=== PATIENT | male | born 1960 | race Caucasian/White ===

== ENCOUNTER 2018-12-07 06:52 | Emergency (ER) | payer OTHER ==
[~2018-12-07] VITALS: Ht 167.6 cm; Wt 101.5 kg
[~2018-12-07 06:52] MED LIST: XANAX 0.25 MG0.25 MG
[2018-12-07] MEDS ORDERED: NOHOMEMEDICATIONS (07:09)
[2018-12-07 07:34] LABS: ABSOLUTE BASOPHILS 0.1 thou/uL (0.0-0.2); ABSOLUTE EOSINOPHILS 0.1 thou/uL (0.0-0.7); ABSOLUTE LYMPHOCYTES 2.3 thou/uL (0.8-5.3); ABSOLUTE NEUTROPHILS 11.8 thou/uL (1.6-8.1); BASOPHILS 0.9 %; EOSINOPHILS 0.7 %; HEMATOCRIT 47.1 % (42.0-52.0); HEMOGLOBIN 15.7 gm/dL (14.0-18.0); LYMPHOCYTES 15.1 %; MCH 27.8 pg (26.0-34.0); MCHC 33.3 g/dL (28.0-37.0); MCV 83.4 fL (80.0-100.0); MONOCYTES 6.6 %; MPV 8.3 fl. (7.2-11.1); NUCLEATED RBCS 0 /100WBC; PLATELET COUNT* 290 thou/uL (150-400); POLYS 76.7 %; RBC 5.65 mil/uL (4.50-6.00); WBC 15.3 thou/uL (4.0-11.0)
[2018-12-07 07:40] LABS: ANION GAP 6 mmol/L (7-16); BUN 14 mg/dL (7-18); CHLORIDE 102 mmol/L (98-107); CO2 28 mmol/L (21-32); CREATININE 1.3 mg/dL (0.6-1.3); GLUCOSE 132 mg/dL (70-99); POTASSIUM 4.2 mmol/L (3.5-5.1); SODIUM 136 mmol/L (136-145)
[2018-12-07 07:45] LABS: PROTIME 9.9 Seconds (9.20-11.50)
[2018-12-07 07:52] LABS: ALBUMIN 3.2 g/dL (3.4-5.0); ALKALINE PHOSPHATASE 125 U/L (46-116); LIPASE 142 U/L (73-393); SGOT 14 U/L (15-37); SGPT 20 U/L (30-65); TOTAL BILIRUBIN 0.3 mg/dL (<0.1-1.0); TOTAL PROTEIN 8.1 g/dL (6.4-8.2); TROPONIN-I LEVEL <0.06 ng/mL (<0.06)
[2018-12-07 11:03] LABS: BE 0 mmol/L (-2 to +3); PCO2 39.1 mmHg (35.0-45.0); PO2 81.4 mmHg (75.0-100.0); pH 7.413 (7.340-7.450)
[2018-12-07] MEDS ORDERED: NEBULIZER MISCELL (11:21)
[2018-12-07] MEDS ORDERED: PREDNISONE50 MG PO (11:21)
[2018-12-07] MEDS ORDERED: SPIRIVA INH (11:21)
[2018-12-07] MEDS ORDERED: ALBUTEROL2.5 MG/31 INH (11:21)
[2018-12-07] MEDS ORDERED: VENTOLIN HFA 1818 GM INH (11:21)
[2018-12-07] MEDS ORDERED: LISINOPRIL-HCT1 EACH PO (11:23)
[2018-12-07 11:41] VITALS: BP 151/100
--- NOTE | 2018-12-09 16:51 | EKG ---
[place] [address] ELECTROCARDIOGRAM REPORT Name: SELINA HALLMAN [facility] [id number] Admission: 12/07/18 Attend Phys: Discharge: 12/07/18 Date of : 58 Report #: [id number] THIS REPORT FOR: //name// [facility] ED Test Date: 2018-12-07 Test Time: 07:03:18 Pat Name: SELINA HALLMAN Department: Room: Gender: M Director Professional Services: : 1960 Requested By: Nara Espinal Order Number: [id number] MD: Casey Wisnton Measurements Intervals [place] Rate: 108 P: -9 DE: 153 QRS: 68 QRSD: 81 T: 16 QT: 317 QTc: 425 Interpretive Statements Sinus tachycardia Abnormal R-wave progression, early transition No previous ECG available for comparison Electronically Signed On 12-09-2018 16:51:32 CDT by Casey Winston [email or web address] <ELECTRONICALLY SIGNED> By: Casey Winston MD, [facility] 12/09/18 [id number] [id number] 07 Casey Winston MD, FACC /EPI
== END 2018-12-07 11:43 | disposition home or self-care (01) ==
LOC: M.ERS 06:52
PROVIDERS: Personal Emergency Response Attendant
DX: J44.1 Chronic obstructive pulmonary disease with (acute) exacerbation (principal); I10 Essential (primary) hypertension; F41.9 Anxiety disorder, unspecified; F17.210 Nicotine dependence, cigarettes, uncomplicated; Z90.49 Acquired absence of other specified parts of digestive tract